=== PATIENT | female | born 1975 | race Caucasian/White ===

== ENCOUNTER 2018-10-08 11:26 | Observation (INO) | payer MEDICARE ==
[2018-10-08] MEDS ORDERED: DUONEB 0.5-3 MG/3 ml Neb IH ONE ×2 (11:49→11:54)
--- NOTE | 2018-10-08 11:55 | ERPHSYRPT ---
- History of Present Illness Time Seen by Provider: 10/08/18 11:40 Source: patient Exam Limitations: no limitations Patient Subjective Stated Complaint: Pt states "I was at my Dr.Dr. Barragan this morning and he said to come here. I have a Hx of DVT and PE and since Saturday I have been short of breath with pain in my chest when I breath and I also have right calf pain." Triage Nursing Assessment: Pt alert and oriented X 3, skin pwd. PT ambulates with an upright steady gait, able to speak in clear full sentences. PT in no apparent respiratory distress. Pt sitting calmly. Physician History: Pt states, she developed shortness of breath 2 days ago, she went to another ER , but did not receive any treatment. She went to see her physician this morning and was sent here. She is c/o pain in her left ribs upon breathing, but denies productive cough, no chest pain, nausea, vomiting, diaphoresis, fever, chills, sore throat or other complaints. She was diagnosed with PE and DVT of the right lower leg 5 years ago, she is currently on coumadin, also takes Clindamycing for infection of her abdominal skin after Lovenox shots. Timing/Duration: day(s) (2) Activities at Onset: none Severity of Dyspnea-Max: moderate Severity of Dyspnea-Current: moderate Possible Cause: occasional episodes Modifying Factors: Improves With: nothing Associated Symptoms: intermittent, cough, chest pain/discomfort, calf pain Allergies/Adverse Reactions: Iodinated Contrast- Oral and IV Dye Allergy (Verified 10/08/18 15:33) shrimp Allergy (Verified 10/08/18 11:36) iv dye theophylline [From Theophyl] Allergy (Verified 10/08/18 11:36) Home Medications: Albuterol Sulfate [Ventolin Hfa] 18 gm IH DAILY 10/08/18 [History] Buspirone HCl [Buspar] 15 mg PO DAILY 10/08/18 [History] Clindamycin HCl 300 mg PO DAILY 10/08/18 [History] Clonazepam [Klonopin] 1 mg PO HS 10/08/18 [History] Cyclobenzaprine HCl 10 mg [Cyclobenzaprine 10 MG] 10 mg PO DAILY 10/08/18 [History] Fluoxetine HCl 20 mg [Prozac 20 MG] 20 mg PO DAILY 10/08/18 [History] Gabapentin [Neurontin] 600 mg PO DAILY 10/08/18 [History] Hydrocodone/Acetaminophen [Hydrocodone-Acetamin 5-325 mg] 1 cap PO DAILY [History] Sucralfate 1 gm [Carafate 1 GM] 1 gm PO DAILY 10/08/18 [History] Trazodone HCl 100 mg PO DAILY 10/08/18 [History] Warfarin Sodium 4 mg PO DAILY 10/08/18 [History] Hx Tetanus, Diphtheria Vaccination/Date Given: Yes Hx Influenza Vaccination/Date Given: Yes Hx Pneumococcal Vaccination/Date Given: No Immunizations Up to Date: Yes - Review of Systems Constitutional: No Symptoms Ears, Nose, & Throat: No Symptoms Respiratory: Dyspnea Cardiac: Other (left rib pain) Abdominal/Gastrointestinal: No Symptoms Genitourinary Symptoms: No Symptoms Musculoskeletal: Other (left calf pain) Skin: No Symptoms Neurological: No Symptoms All Other Systems: Reviewed and Negative - Past Medical History Neurological History: Migraines ENT History: No Pertinent History Cardiac History: Angina, High Cholesterol, Hypertension Respiratory History: Asthma Endocrine Medical History: No Pertinent History Musculoskeletal History: No Pertinent History GI Medical History: Diverticulosis, GERD History: No Pertinent History Psycho-Social History: Anxiety, Depression Female Reproductive Disorders: No Pertinent History - Past Surgical History Past Surgical History: Yes Other Surgical History: hysterectomy. total right knee. appi. suzy. nasal surgery X 2. right ankle. abdomen. lumps off bilat breast - Social History Smoking Status: Never smoker Exposure to second hand smoke: Yes Drug Use: none Patient Lives Alone: No - Female History Hx Last Menstrual Period: compltete hysterectomy Hx Now: No - Nursing Vital Signs Nursing Vital Signs: Initial Vital Signs Temperature 98.4 F 10/08/18 11:27 Pulse Rate 76 10/08/18 11:27 Respiratory Rate 20 10/08/18 11:27 Blood Pressure 132/83 10/08/18 11:27 O2 Sat by Pulse Oximetry 96 10/08/18 11:27 Pain Scale Pain Intensity 4 - Physical Exam General Appearance: no apparent distress Eye Exam: eyes nml inspection Neck Exam: normal inspection, non-tender, supple, No JVD Respiratory Exam: rhonchi, wheezing, other (left lateral and posterior chest ) Cardiovascular/Chest Exam: normal heart sounds, regular rate/rhythm, normal peripheral pulses, No murmur, No edema, No JVD Abdominal/Gastrointestinal Exam: soft, normal bowel sounds, ecchymosis, other ( multiple Lovenox shots, ecchymotic areas), No tenderness, No distention, No mass , No guarding, No rebound Peripheral Pulses Exam: dorsalis-pedis (R): 3+, dorsalis-pedis (L): 3+ Neurologic Exam: alert, oriented x 3, cooperative, normal mood/affect Skin Exam: normal color, warm, dry, No rash, No petechiae Lymphatic Exam: No adenopathy SpO2 Interpretation: normal SpO2: 98 O2 Delivery: Room Air - Course Nursing assessment & vital signs reviewed: Yes EKG Interpreted by Me: RATE (74), Sinus Rhythm, NORMAL AXIS, NORMAL INTERVALS, NORMAL QRS, NORMAL ST-T - Radiology Exams Chest X-ray Interpretation: Reviewed by me, Negative Ordered Tests: Active Orders 24 hr Category Date Time Status Granite Polisher STAT Care 10/08/18 11:48 Active EKG-ER Only STAT Care 10/08/18 11:48 Active IV Insertion STAT Care 10/08/18 11:48 Active Pulse Oximetry (ED) STAT Care 10/08/18 11:48 Active CHEST 2 VIEWS (PA AND LAT) Stat Exams 10/08/18 11:47 Completed VENOUS UNILAT/LIMITED EXTREMIT [US] Stat Exams 10/08/18 14:25 Completed CBC W DIFF Stat Lab 10/08/18 11:50 Completed CK-Creatinine Phosphokinase Stat Lab 10/08/18 11:50 Completed CMP Stat Lab 10/08/18 11:50 Completed D-DIMER QUANTITATION Stat Lab 10/08/18 11:00 Completed NT PRO BNP Stat Lab 10/08/18 11:50 Completed PROTIME WITH INR Stat Lab 10/08/18 11:50 Completed PTT Stat Lab 10/08/18 11:50 Completed TROPONIN Q3H Lab 10/08/18 11:50 Completed TROPONIN Q3H Lab 10/08/18 14:55 Completed TROPONIN Q3H Lab 10/08/18 18:00 Ordered TROPONIN Q3H Lab 10/08/18 21:00 Ordered TROPONIN Q3H Lab 10/09/18 00:00 Ordered Peak Expiratory Flow Rate ONCE RT 10/08/18 12:19 Active Respiratory Nebulizer STAT RT 10/08/18 11:49 Completed Respiratory Therapy Assessment DAILY RT 10/08/18 12:19 Active Medication Summary Discontinued Medications Generic Name Dose Route Start Last Admin Trade Name Sidney PRN Reason Stop Dose Admin Albuterol/Ipratropium 3 ml 10/08/18 11:49 10/08/18 12:12 Duoneb 0.5-3 Mg/3 Ml Neb IH 10/08/18 11:50 3 ml STAT ONE Administration Albuterol/Ipratropium Confirm 10/08/18 11:54 Duoneb 0.5-3 Mg/3 Ml Neb Administered 10/08/18 11:55 Dose 3 ml IH .STK-MED ONE Enoxaparin Sodium 90 mg 10/08/18 15:38 10/08/18 15:42 Enoxaparin Sodium SQ 10/08/18 15:39 90 mg STAT ONE Administration Enoxaparin Sodium Confirm 10/08/18 15:41 Enoxaparin Sodium Administered 10/08/18 15:42 Dose 120 mg SQ .STK-MED ONE Lab/Rad Data: Laboratory Result Diagrams 10/08/18 11:50 10/08/18 11:50 Laboratory Results 10/08/18 10/08/18 10/08/18 Range/Units 14:55 11:50 11:50 WBC (4.0-10.5) K/mm3 RBC (4.1-5.4) M/mm3 Hgb (12.0-16.0) gm/dl Hct (35-47) % MCV (78-100) fl MCH (26-32) pg MCHC (32-36) g/dl RDW (11.5-14.0) % Plt Count (150-450) K/mm3 MPV (6-9.5) fl Gran % (36.0-66.0) % Eos # (Auto) (0-0.5) Absolute Lymphs (auto) (1.0-4.6) Absolute Monos (auto) (0.0-1.3) Lymphocytes % (24.0-44.0) % Monocytes % (0.0-12.0) % Eosinophils % (0.00-5.0) % Basophils % (0.0-0.4) % Absolute Granulocytes (1.4-6.9) Basophils # (0-0.4) PT 12.4 H (9.95-12.35) SECONDS INR 1.07 (0.8-3.0) APTT 28.3 (25.3-37.0) SECONDS D-Dimer (215-500) ng/mL Sodium (137-145) mmol/L Potassium (3.5-5.1) mmol/L Chloride (98-107) mmol/L Carbon Dioxide (22-30) mmol/L Anion Gap (5-15) MEQ/L BUN (7-17) mg/dL Creatinine (0.52-1.04) mg/dL Estimated GFR ML/MIN Glucose (74-106) mg/dL Calcium (8.4-10.2) mg/dL Total Bilirubin (0.2-1.3) mg/dL AST (14-36) U/L ALT (0-35) U/L Alkaline Phosphatase (38-126) U/L Creatine Kinase (30-135) U/L Troponin I < 0.012 < 0.012 (0.000-0.034) ng/mL NT-Pro-B Natriuret Pep (0-450) pg/mL Serum Total Protein (6.3-8.2) g/dL Albumin (3.5-5.0) g/dL 10/08/18 10/08/18 10/08/18 Range/Units 11:50 11:50 11:00 WBC 6.8 (4.0-10.5) K/mm3 RBC 4.40 (4.1-5.4) M/mm3 Hgb 13.7 (12.0-16.0) gm/dl Hct 42.1 (35-47) % MCV 95.7 (78-100) fl MCH 31.1 (26-32) pg MCHC 32.5 (32-36) g/dl RDW 13.1 (11.5-14.0) % Plt Count 350 (150-450) K/mm3 MPV 9.9 H (6-9.5) fl Gran % 57.0 (36.0-66.0) % Eos # (Auto) 0.29 (0-0.5) Absolute Lymphs (auto) 2.15 (1.0-4.6) Absolute Monos (auto) 0.40 (0.0-1.3) Lymphocytes % 31.8 (24.0-44.0) % Monocytes % 5.9 (0.0-12.0) % Eosinophils % 4.3 (0.00-5.0) % Basophils % 1.0 (0.0-0.4) % Absolute Granulocytes 3.85 (1.4-6.9) Basophils # 0.07 (0-0.4) PT (9.95-12.35) SECONDS INR (0.8-3.0) APTT (25.3-37.0) SECONDS D-Dimer 375 (215-500) ng/mL Sodium 142 (137-145) mmol/L Potassium 3.9 (3.5-5.1) mmol/L Chloride 105 (98-107) mmol/L Carbon Dioxide 27 (22-30) mmol/L Anion Gap 13.7 (5-15) MEQ/L BUN 10 (7-17) mg/dL Creatinine 0.84 (0.52-1.04) mg/dL Estimated GFR > 60.0 ML/MIN Glucose 105 (74-106) mg/dL Calcium 10.2 (8.4-10.2) mg/dL Total Bilirubin 0.50 (0.2-1.3) mg/dL AST 21 (14-36) U/L ALT 37 H (0-35) U/L Alkaline Phosphatase 131 H (38-126) U/L Creatine Kinase 130 (30-135) U/L Troponin I (0.000-0.034) ng/mL NT-Pro-B Natriuret Pep 35.0 (0-450) pg/mL Serum Total Protein 7.5 (6.3-8.2) g/dL Albumin 4.4 (3.5-5.0) g/dL - Progress Progress: unchanged Air Movement: good Progress Note: 10/08/18 16:19 Pt's tesults all reviewed, d-dimer and right venous doppler were negative, troponin negative, planned to perform CT chest, she is allergic to iv dye, ( anaphilactic), called Dr Ryan, discussed this case in details,he agreed to admit her for observation, Lovenox was started ( her INR:1.07), patient was informed and agreed. Blood Culture(s) Obtained: No Antibiotics given: No Discussed with : Other (Connor) Will see patient in: hospital (observation) Counseled pt/family regarding: lab results, diagnosis, rad results - Departure Time of Disposition: 16:22 Departure Disposition: Observation Clinical Impression: Chest pain Qualifiers: Chest pain type: chest pain on breathing Qualified Code(s): R07.1 - Chest pain on breathing; R07.81 - Pleurodynia Condition: Stable Critical Care Time: No Referrals: JUVENTINO FERNANDEZ MD [Primary Care Provider] -
[2018-10-08 12:05] LABS: Basophil (Absolute #) 0.07 (0-0.4); Eosinophil % 4.3 % (0.00-5.0); Eosinophil (Absolute #) 0.29 (0-0.5); Granulocyte Absolute (ANC) 3.85 (1.4-6.9); Hematocrit 42.1 % (35-47); Hemoglobin 13.7 gm/dl (12.0-16.0); Lymphocyte (Absolute #) 2.15 (1.0-4.6); Lymphocytes % 31.8 % (24.0-44.0); Mean Cell Volume 95.7 fl (78-100); Mean Corpuscular Hemoglobin 31.1 pg (26-32); Mean Corpuscular Hgb Concent. 32.5 g/dl (32-36); Mean Platelet Volume 9.9 fl (6-9.5); Monocytes % 5.9 % (0.0-12.0); Platelet Count 350 K/mm3 (150-450); Red Cell Distribution Width 13.1 % (11.5-14.0); White Blood Count 6.8 K/mm3 (4.0-10.5)
--- NOTE | 2018-10-08 12:05 | XRAY ---
Indication: Left chest pain. Comparison: None PA/lateral chest demonstrates normal heart and lungs. Bony thorax intact with mild degenerative changes. Incidental epigastric mesh graft.
[2018-10-08 12:11] LABS: INR 1.07 (0.8-3.0); PROTIME 12.4 SECONDS (9.95-12.35)
[2018-10-08 12:14] LABS: PTT 28.3 SECONDS (25.3-37.0)
[2018-10-08 12:33] LABS: ALBUMIN 4.4 g/dL (3.5-5.0); ALKALINE PHOSPHATASE 131 U/L (38-126); ANION GAP 13.7 MEQ/L (5-15); BLOOD UREA NITROGEN 10 mg/dL (7-17); CHLORIDE 105 mmol/L (98-107); CK-Creatinine Phosphokinase 130 U/L (30-135); Calcium 10.2 mg/dL (8.4-10.2); Carbon Dioxide 27 mmol/L (22-30); Creatinine 1 0.84 mg/dL (0.52-1.04); Glucose 105 mg/dL (74-106); Potassium 3.9 mmol/L (3.5-5.1); SGOT/AST 21 U/L (14-36); SGPT/ALT 37 U/L (0-35); SODIUM 142 mmol/L (137-145); Total Protein 7.5 g/dL (6.3-8.2)
--- NOTE | 2018-10-08 14:36 | XRAY ---
Indication: Right leg pain. Two-dimensional sonogram and color Doppler imaging of the major venous vessels of the right leg was performed. Comparison: None No thrombus seen in the examined deep venous vessels of the right leg including greater saphenous vein. Veins demonstrate normal compressibility. Venous waveforms are normal with and without augmentation. Impression: Right leg negative for DVT.
[2018-10-08] MEDS ORDERED: ENOXAPARIN SODIUM SQ ONE ×3 (15:38→23:09)
[2018-10-08] MEDS ORDERED: solu-MEDROL 125 MG IV ONE (17:52)
[2018-10-08] MEDS ORDERED: Coumadin 5 MG PO ONE (17:55)
[2018-10-08] MEDS ORDERED: Coumadin 3 MG PO ONE (17:57)
[2018-10-08] MEDS: TORAdol 30 mg Injection IV PRN (18:46)
[2018-10-08] MEDS ORDERED: DUONEB 0.5-3 MG/3 ml Neb IH SCH (19:00)
[2018-10-08] MEDS ORDERED: Klonopin 0.5 MG PO SCH (19:00)
[2018-10-08] MEDS: PROVENTIL 2.5 MG/3 ML NEB IH SCH ×2 (19:25→22:55)
[2018-10-08] MEDS: Advair Hfa 115/21 Common canister IH SCH (19:29)
[2018-10-08] MEDS ORDERED: ENOXAPARIN SODIUM SQ SCH (22:00)
[2018-10-08] MEDS: BENADRYL 25 MG CAPSULE PO PRN (23:12)
[2018-10-08] MEDS: Protonix 40MG Tablet PO SCH (23:12)
[2018-10-08] MEDS: Singulair 10 MG PO SCH (23:13)
[2018-10-08] MEDS: Ambien 5 MG Tablet PO SCH (23:13)
[2018-10-08] MEDS: BACTRIM DS TABLET PO SCH (23:13)
[2018-10-09] MEDS ORDERED: NEURONTIN 300 MG ONE (00:08)
[2018-10-09] MEDS: TORAdol 30 mg Injection IV PRN ×3 (00:09→17:03)
[2018-10-09] MEDS: PROVENTIL 2.5 MG/3 ML NEB IH SCH ×6 (02:59→23:02)
[2018-10-09] MEDS ORDERED: PROVENTIL 2.5 MG/3 ML NEB IH ONE (06:44)
[2018-10-09] MEDS: Advair Hfa 115/21 Common canister IH SCH ×2 (06:54→19:42)
[2018-10-09] MEDS ORDERED: ENOXAPARIN SODIUM SQ SCH (07:00)
[2018-10-09] MEDS ORDERED: NORCO 5/325 MG PO PRN (07:11)
[2018-10-09] MEDS ORDERED: NON-FORMULARY ITEM (Clonazepam [Klonopin] 1 MG) PO PRN (07:11)
[2018-10-09] MEDS ORDERED: Klonopin 0.5 MG PO PRN (07:16)
[2018-10-09] MEDS: Carafate 1 GM PO SCH (07:35)
[2018-10-09] MEDS: Klonopin 0.5 MG PO PRN ×2 (08:20→17:24)
[2018-10-09] MEDS: Zestril 10 MG PO SCH (09:15)
[2018-10-09] MEDS: Prozac 20 MG PO SCH (09:15)
[2018-10-09] MEDS: BACTRIM DS TABLET PO SCH (09:15)
[2018-10-09] MEDS: NEURONTIN 300 MG PO SCH ×2 (09:16→21:13)
[2018-10-09 09:36] LABS: INR 1.37 (0.8-3.0)
[2018-10-09 09:42] LABS: BASOPHIL % 0.1 % (0.0-0.4); Basophil (Absolute #) 0.01 (0-0.4); Eosinophil (Absolute #) 0 (0-0.5); Granulocytes % 86.4 % (36.0-66.0); Hematocrit 42.8 % (35-47); Hemoglobin 13.7 gm/dl (12.0-16.0); Lymphocyte (Absolute #) 0.89 (1.0-4.6); Lymphocytes % 9.4 % (24.0-44.0); Mean Cell Volume 95.1 fl (78-100); Mean Corpuscular Hemoglobin 30.4 pg (26-32); Mean Platelet Volume 10.3 fl (6-9.5); Monocyte (Absolute #) 0.39 (0.0-1.3); Monocytes % 4.1 % (0.0-12.0); Platelet Count 380 K/mm3 (150-450); White Blood Count 9.5 K/mm3 (4.0-10.5)
--- NOTE | 2018-10-09 09:57 | PCM.HP ---
History of Present Illness - Chief Complaint Chief Complaint: Shortness of Breath History of Present Illness: is a 43 year old female with h/o Asthma, chronic lower back pain, and PE first diagnosed in 2013. Subsequently, she had more intermittent episodes of DVT's, so has been on coumadin since then. Pt sees Dr montrell Palencia. She has been tapering off coumadin for a procedure and bridge back with lovenox, but her coumadin didn't mixing picker tender. She starts to have more SOB in the past week and tenderness in her right LE, so she came to ED for evaluation. She initially went to a different ED, but came here for treatment instead. Pt develops contrast allergy after her first diagnosis of PE. She has chest tightness/ pressure, and sob along with right calf pain. She denies any recent f/c, vision changes, n/v/d, abd pain, or bleeding. She has cellulitis in her abdomen due to recent frequent SubQ Lovenox shots. - Review of Systems Constitutional: Fatigue, No Fever, No Chills Eyes: No Symptoms Ears, Nose, & Throat: No Symptoms Respiratory: Short Of Breath, Wheezing Cardiac: Chest Pain, No Edema, No Palpitations, No Syncope Abdominal/Gastrointestinal: Nausea, No Abdominal Pain, No Vomiting, No Diarrhea Genitourinary Symptoms: No Symptoms Musculoskeletal: Myalgias, Other Skin: Cellulitis, No Rash Neurological: No Symptoms Psychological: No Symptoms Endocrine: No Symptoms Hematologic/Lymphatic: No Symptoms Immunological/Allergic: No Symptoms Medications & Allergies Home Medications: Home Medication List Albuterol Sulfate [Ventolin Hfa] 18 gm IH QIDPRN PRN 10/08/18 [History Confirmed 10/08/18] Clindamycin HCl 300 mg PO QID 10/08/18 [History Confirmed 10/08/18] Clonazepam [Klonopin] 1 mg PO HSPRN PRN 10/08/18 [History Confirmed 10/08/18] Cyclobenzaprine HCl 10 mg [Cyclobenzaprine 10 MG] 10 mg PO HS 10/08/18 [ History Confirmed 10/08/18] Fluoxetine HCl 20 mg [Prozac 20 MG] 20 mg PO DAILY 10/08/18 [History Confirmed 10/08/18] Gabapentin [Neurontin] 600 mg PO BID 10/08/18 [History Confirmed 10/08/18] Hydrocodone/Acetaminophen [Hydrocodone-Acetamin 5-325 mg] 1 cap PO DAILY PRN PRN 10/08/18 [History Confirmed 10/08/18] Lisinopril 10 mg [Zestril 10 MG] 10 mg PO DAILY 10/08/18 [History Confirmed 10/08/18] Sucralfate 1 gm [Carafate 1 GM] 1 gm PO DAILY 10/08/18 [History Confirmed 10/08/18] Warfarin Sodium 4 mg PO DAILY 10/08/18 [History Confirmed 10/08/18] clonazePAM [Klonopin] 0.5 tab PO QIDPRN PRN 10/08/18 [History Confirmed 10/08/18 ] Allergies/Adverse Reactions: Allergies Allergy/AdvReac Type Severity Reaction Status Date / Time Iodinated Contrast- Oral and Allergy Verified 10/08/18 15:33 IV Dye shrimp Allergy Verified 10/08/18 11:36 theophylline [From Theophyl] Allergy Verified 10/08/18 11:36 - Past Medical History Past Medical History: Yes Neurological History: Migraines ENT History: No Pertinent History Cardiac History: Angina, High Cholesterol, Hypertension Respiratory History: Asthma, Pulmonary Embolism Endocrine Medical History: No Pertinent History Musculoskelatal History: No Pertinent History GI Medical History: Diverticulosis, GERD History: No Pertinent History Pyscho-Social History: Anxiety, Depression Reproductive Disorders: No Pertinent History - Female History Hx Last Menstrual Period: compltete hysterectomy Are you now?: No - Past Surgical History Past Surgical History: Yes Neuro Surgical History: No Pertinent History Cardiac History: No Pertinent History Respiratory Surgery: No Pertinent History GI Surgical History: Appendectomy, Bowel Surgery, Other Genitourinary Surgical Hx: No Pertinent History Musculskeletal Surgical Hx: Orthopedic Surgery Female Surgical History: Hysterectomy Other Surgical History: hysterectomy. total right knee. appi. suzy. nasal surgery X 2. right ankle. abdomen. lumps off bilat breast. stomach surgery X2 - Social History Smoking Status: Never smoker Exposure to second hand smoke: No Alcohol: None Drug Use: none - Physical Exam Vital Signs: Vital Signs - 24 hr Temp Pulse Resp BP Pulse Ox 10/09/18 08:19 113 H 14 128/66 95 10/09/18 08:00 97.7 F 115 H 22 126/70 95 10/09/18 07:25 105 H 18 95 10/09/18 03:59 98.3 F 112 H 16 126/73 94 L 10/09/18 02:59 105 H 20 91 L 10/08/18 23:44 98.2 F 99 H 21 121/75 97 10/08/18 22:55 99 H 21 97 10/08/18 19:58 98.2 F 83 18 133/72 96 10/08/18 19:25 82 20 97 10/08/18 19:19 102 H 20 97 10/08/18 17:14 98 F 77 20 131/90 93 L 10/08/18 16:52 98 F 77 20 131/90 93 L 10/08/18 16:22 98 10/08/18 16:13 98.4 F 80 18 128/34 99 10/08/18 14:54 79 18 133/87 96 10/08/18 14:00 73 14 140/84 100 10/08/18 12:51 98.7 F 75 16 138/88 98 10/08/18 12:20 80 16 94 L 10/08/18 11:27 98.4 F 76 18 132/83 98 Oxygen-Last 24 hours O2 Percentage 4 Liters = 36% O2 Percentage 3 Liters = 32% Additional Findings: 10/09/18 09:54 General appearance: alert, cooperative, in mild distress Head: Normocephalic, without trauma Eyes: sclera and conjunctiva clear, EOMI and PERRLA, lids normal Ears: canals clear, hearing intact to voice Nose: nares open; Throat: no mucous membrane abnormalities Neck: range of motion is intact, no masses, Back: no deformity or tenderness Chest: no tenderness, Lungs: decreased breath sounds in b/l lower segments; mild - moderate expiratory wheezes; no rales/crackles Heart: regular rhythm, normal S1 and S2, without murmurs, gallops or rubs Abdomen: soft without mass, non-tender without guarding, multiple cellulitis erythematous patches; BS presents Extremities: no clubbing, cyanosis or edema; tenderness in right calf, but no swelling or erythema Circulation: Carotid and pedal pulses are intact and symmetrical, no carotid bruits Joints: ranges of motion normal without inflammation, effusion or deformity Skin: warm and dry; no rashes or other abnormalities are noted Neurologic: mental status normal; alert and oriented X 3; cranial nerves II - XII are grossly intact Psychological: cooperative; normal behavior and affect Results - Labs Lab/Micro Results: Lab Results-Last 24 Hours 10/08/18 10/08/18 10/08/18 Range/Units 11:00 11:50 11:50 WBC 6.8 (4.0-10.5) K/mm3 RBC 4.40 (4.1-5.4) M/mm3 Hgb 13.7 (12.0-16.0) gm/dl Hct 42.1 (35-47) % MCV 95.7 (78-100) fl MCH 31.1 (26-32) pg MCHC 32.5 (32-36) g/dl RDW 13.1 (11.5-14.0) % Plt Count 350 (150-450) K/mm3 MPV 9.9 H (6-9.5) fl Gran % 57.0 (36.0-66.0) % Eos # (Auto) 0.29 (0-0.5) Absolute Lymphs (auto) 2.15 (1.0-4.6) Absolute Monos (auto) 0.40 (0.0-1.3) Lymphocytes % 31.8 (24.0-44.0) % Monocytes % 5.9 (0.0-12.0) % Eosinophils % 4.3 (0.00-5.0) % Basophils % 1.0 (0.0-0.4) % Absolute Granulocytes 3.85 (1.4-6.9) Basophils # 0.07 (0-0.4) PT (9.95-12.35) SECONDS INR (0.8-3.0) APTT (25.3-37.0) SECONDS D-Dimer 375 (215-500) ng/mL Sodium 142 (137-145) mmol/L Potassium 3.9 (3.5-5.1) mmol/L Chloride 105 (98-107) mmol/L Carbon Dioxide 27 (22-30) mmol/L Anion Gap 13.7 (5-15) MEQ/L BUN 10 (7-17) mg/dL Creatinine 0.84 (0.52-1.04) mg/dL Estimated GFR > 60.0 ML/MIN Glucose 105 (74-106) mg/dL Calcium 10.2 (8.4-10.2) mg/dL Total Bilirubin 0.50 (0.2-1.3) mg/dL AST 21 (14-36) U/L ALT 37 H (0-35) U/L Alkaline Phosphatase 131 H (38-126) U/L Creatine Kinase 130 (30-135) U/L Troponin I (0.000-0.034) ng/mL NT-Pro-B Natriuret Pep 35.0 (0-450) pg/mL Serum Total Protein 7.5 (6.3-8.2) g/dL Albumin 4.4 (3.5-5.0) g/dL 10/08/18 10/08/18 10/08/18 Range/Units 11:50 11:50 14:55 WBC (4.0-10.5) K/mm3 RBC (4.1-5.4) M/mm3 Hgb (12.0-16.0) gm/dl Hct (35-47) % MCV (78-100) fl MCH (26-32) pg MCHC (32-36) g/dl RDW (11.5-14.0) % Plt Count (150-450) K/mm3 MPV (6-9.5) fl Gran % (36.0-66.0) % Eos # (Auto) (0-0.5) Absolute Lymphs (auto) (1.0-4.6) Absolute Monos (auto) (0.0-1.3) Lymphocytes % (24.0-44.0) % Monocytes % (0.0-12.0) % Eosinophils % (0.00-5.0) % Basophils % (0.0-0.4) % Absolute Granulocytes (1.4-6.9) Basophils # (0-0.4) PT 12.4 H (9.95-12.35) SECONDS INR 1.07 (0.8-3.0) APTT 28.3 (25.3-37.0) SECONDS D-Dimer (215-500) ng/mL Sodium (137-145) mmol/L Potassium (3.5-5.1) mmol/L Chloride (98-107) mmol/L Carbon Dioxide (22-30) mmol/L Anion Gap (5-15) MEQ/L BUN (7-17) mg/dL Creatinine (0.52-1.04) mg/dL Estimated GFR ML/MIN Glucose (74-106) mg/dL Calcium (8.4-10.2) mg/dL Total Bilirubin (0.2-1.3) mg/dL AST (14-36) U/L ALT (0-35) U/L Alkaline Phosphatase (38-126) U/L Creatine Kinase (30-135) U/L Troponin I < 0.012 < 0.012 (0.000-0.034) ng/mL NT-Pro-B Natriuret Pep (0-450) pg/mL Serum Total Protein (6.3-8.2) g/dL Albumin (3.5-5.0) g/dL 10/08/18 10/08/18 10/09/18 Range/Units 18:00 21:10 00:20 WBC (4.0-10.5) K/mm3 RBC (4.1-5.4) M/mm3 Hgb (12.0-16.0) gm/dl Hct (35-47) % MCV (78-100) fl MCH (26-32) pg MCHC (32-36) g/dl RDW (11.5-14.0) % Plt Count (150-450) K/mm3 MPV (6-9.5) fl Gran % (36.0-66.0) % Eos # (Auto) (0-0.5) Absolute Lymphs (auto) (1.0-4.6) Absolute Monos (auto) (0.0-1.3) Lymphocytes % (24.0-44.0) % Monocytes % (0.0-12.0) % Eosinophils % (0.00-5.0) % Basophils % (0.0-0.4) % Absolute Granulocytes (1.4-6.9) Basophils # (0-0.4) PT (9.95-12.35) SECONDS INR (0.8-3.0) APTT (25.3-37.0) SECONDS D-Dimer (215-500) ng/mL Sodium (137-145) mmol/L Potassium (3.5-5.1) mmol/L Chloride (98-107) mmol/L Carbon Dioxide (22-30) mmol/L Anion Gap (5-15) MEQ/L BUN (7-17) mg/dL Creatinine (0.52-1.04) mg/dL Estimated GFR ML/MIN Glucose (74-106) mg/dL Calcium (8.4-10.2) mg/dL Total Bilirubin (0.2-1.3) mg/dL AST (14-36) U/L ALT (0-35) U/L Alkaline Phosphatase (38-126) U/L Creatine Kinase (30-135) U/L Troponin I < 0.012 < 0.012 < 0.012 (0.000-0.034) ng/mL NT-Pro-B Natriuret Pep (0-450) pg/mL Serum Total Protein (6.3-8.2) g/dL Albumin (3.5-5.0) g/dL 10/09/18 10/09/18 10/09/18 Range/Units 08:27 08:45 08:45 WBC 9.5 (4.0-10.5) K/mm3 RBC 4.50 (4.1-5.4) M/mm3 Hgb 13.7 (12.0-16.0) gm/dl Hct 42.8 (35-47) % MCV 95.1 (78-100) fl MCH 30.4 (26-32) pg MCHC 32.0 (32-36) g/dl RDW 13.0 (11.5-14.0) % Plt Count 380 (150-450) K/mm3 MPV 10.3 H (6-9.5) fl Gran % 86.4 H (36.0-66.0) % Eos # (Auto) 0 (0-0.5) Absolute Lymphs (auto) 0.89 L (1.0-4.6) Absolute Monos (auto) 0.39 (0.0-1.3) Lymphocytes % 9.4 L (24.0-44.0) % Monocytes % 4.1 (0.0-12.0) % Eosinophils % 0.0 (0.00-5.0) % Basophils % 0.1 (0.0-0.4) % Absolute Granulocytes 8.20 H (1.4-6.9) Basophils # 0.01 (0-0.4) PT 16.0 H (9.95-12.35) SECONDS INR 1.37 D (0.8-3.0) APTT (25.3-37.0) SECONDS D-Dimer (215-500) ng/mL Sodium (137-145) mmol/L Potassium (3.5-5.1) mmol/L Chloride (98-107) mmol/L Carbon Dioxide (22-30) mmol/L Anion Gap (5-15) MEQ/L BUN (7-17) mg/dL Creatinine (0.52-1.04) mg/dL Estimated GFR ML/MIN Glucose (74-106) mg/dL Calcium (8.4-10.2) mg/dL Total Bilirubin (0.2-1.3) mg/dL AST (14-36) U/L ALT (0-35) U/L Alkaline Phosphatase (38-126) U/L Creatine Kinase (30-135) U/L Troponin I < 0.012 (0.000-0.034) ng/mL NT-Pro-B Natriuret Pep (0-450) pg/mL Serum Total Protein (6.3-8.2) g/dL Albumin (3.5-5.0) g/dL - Radiology Impressions Radiology Exams & Impressions: Radiology Procedures Category Date Time Status CHEST 2 VIEWS (PA AND LAT) Stat Exams 10/08/18 11:47 Completed PULMONARY PERF VENTILATION [NUCMED] Routine Exams 10/09/18 08:00 Ordered VENOUS UNILAT/LIMITED EXTREMIT [US] Stat Exams 10/08/18 14:25 Completed - Other Procedures and Tests Respiratory Therapy 10/08/18 12:19 Peak Expiratory Flow Rate ONCE Respiratory Therapy Assessment DAILY 10/08/18 19:16 Oxygen Nasal Cannula 3 lpm Assessment/Plan (1) Pulmonary embolism Current Visit: Yes Status: Acute Assessment & Plan: started full anticogulation with SQ Lovenox bridge with coumadin cont O2, prn pain meds discharge planning with lovenox bridge check INR and dose coumadin Code(s): I26.99 - OTHER PULMONARY EMBOLISM WITHOUT ACUTE COR PULMONALE (2) Asthma Current Visit: Yes Status: Acute Assessment & Plan: in mild exacerbation due to PE steroid scheduled nebulizers until stable resume home meds Code(s): J45.909 - UNSPECIFIED ASTHMA, UNCOMPLICATED (3) Cellulitis Current Visit: Yes Status: Acute Assessment & Plan: due to recent SubQ injections was on clindamycin switched to PO DS Bactrim BID x 10 days Code(s): L03.90 - CELLULITIS, UNSPECIFIED
[2018-10-09] MEDS ORDERED: NON-FORMULARY ITEM (Gabapentin [Neurontin] 600 MG) PO SCH (10:00)
[2018-10-09] MEDS ORDERED: Ativan 1 MG PO PRN (11:17)
[2018-10-09 11:25] LABS: ANION GAP 16.9 MEQ/L (5-15); BLOOD UREA NITROGEN 12 mg/dL (7-17); CHLORIDE 108 mmol/L (98-107); Calcium 10.2 mg/dL (8.4-10.2); Carbon Dioxide 22 mmol/L (22-30); Creatinine 1 0.81 mg/dL (0.52-1.04); Glucose 152 mg/dL (74-106); Potassium 4.5 mmol/L (3.5-5.1); SODIUM 142 mmol/L (137-145)
[2018-10-09] MEDS: solu-MEDROL 125 MG IV SCH ×2 (12:10→17:01)
[2018-10-09] MEDS: MORPHINE SULFATE 4 MG INJ IV PRN ×3 (12:16→23:41)
--- NOTE | 2018-10-09 12:29 | XRAY ---
Indication: Left-sided chest pain, short of breath, and low blood oxygen level. Negative chest radiograph and right leg venous ultrasound exam one day earlier. History bilateral PE. Patient received 5.4 mCi technetium 99 MAA for the perfusion portion of the exam. Patient inhaled 36.3 mCi aerosolized technetium 99 DTPA. Multiple planar images obtained. Comparison: None Perfusion images demonstrates homogeneous radiopharmaceutical activity. Specifically no segmental/subsegmental perfusion defects. Ventilation images also demonstrates homogeneous radiopharmaceutical activity in both lungs. Moderate central radiopharmaceutical activity favors chronic obstructive disease. Impression: 1. Negative for PE. 2. Incidental chronic obstructive disease.
[2018-10-09] MEDS: ENOXAPARIN SODIUM SQ SCH (17:01)
[2018-10-09] MEDS ORDERED: Ativan 2 MG/1 ML VIAL IV PRN (17:47)
[2018-10-09] MEDS ORDERED: Coumadin 2 MG PO ONE (18:00)
[2018-10-09] MEDS ORDERED: Coumadin 3 MG PO ONE (18:00)
[2018-10-09] MEDS ORDERED: Seroquel 100 MG PO PRN (18:05)
[2018-10-09] MEDS ORDERED: HALDOL 1 MG PO PRN (18:09)
[2018-10-09] MEDS: BENADRYL 25 MG CAPSULE PO PRN (21:13)
[2018-10-09] MEDS: Ambien 5 MG Tablet PO SCH (21:14)
[2018-10-09] MEDS: Protonix 40MG Tablet PO SCH (21:14)
[2018-10-09] MEDS: Cyclobenzaprine 10 MG PO SCH ×2 (21:14→22:30)
[2018-10-09] MEDS: Singulair 10 MG PO SCH (21:14)
[2018-10-09] MEDS: Zosyn 3.375GM/100 Ml D5W 3.375 GM/100 ML IVPB IV SCH (21:45)
[2018-10-09] MEDS ORDERED: Seroquel 100 MG PO SCH (22:00)
[2018-10-09] MEDS ORDERED: NEURONTIN 300 MG PO ONE (23:58)
[2018-10-10] MEDS: solu-MEDROL 125 MG IV SCH ×3 (00:26→11:40)
[2018-10-10] MEDS: Zosyn 3.375GM/100 Ml D5W 3.375 GM/100 ML IVPB IV SCH ×3 (01:18→11:40)
[2018-10-10] MEDS: PROVENTIL 2.5 MG/3 ML NEB IH SCH ×3 (03:15→10:51)
[2018-10-10 04:48] LABS: Lactic Acid 3.5 (0.4-2.0)
[2018-10-10 04:50] LABS: A-aADO2 154; ABG HEMOGLOBIN 12.6; ABG POTASSIUM 4.3 (3.5-5.1); ABG SITE LEFT BRACHIAL; ARTERIAL BLD GAS O2 SATURATION 99.2 % (95-100); ARTERIAL BLOOD GAS BASE EXCESS -1.6 (-2.0-2.0); ARTERIAL BLOOD GAS FIO2 44 %; ARTERIAL BLOOD GAS PCO2 30 mmHg (35-45); ARTERIAL BLOOD GAS PO2 122 mmHg (75-100); ARTERIAL BLOOD GAS pH 7.46 (7.35-7.45); CARBOXYHEMOGLOBIN 2.7 % THgb (0.0-6.9); HCO3- 21.3 (22-28); HGB O2 SAT 95.2 g/dF (94-100); Methhemoglobin 1.3 % (1.4-1.5); paO2 pAO1 0.44
[2018-10-10 04:56] LABS: BASOPHIL % 0.1 % (0.0-0.4); Basophil (Absolute #) 0.01 (0-0.4); Eosinophil % 0.1 % (0.00-5.0); Eosinophil (Absolute #) 0.01 (0-0.5); Granulocyte Absolute (ANC) 16.01 (1.4-6.9); Granulocytes % 93.7 % (36.0-66.0); Hematocrit 38.7 % (35-47); Hemoglobin 12.2 gm/dl (12.0-16.0); Lymphocyte (Absolute #) 0.81 (1.0-4.6); Lymphocytes % 4.7 % (24.0-44.0); Mean Cell Volume 97.7 fl (78-100); Mean Corpuscular Hemoglobin 30.8 pg (26-32); Mean Corpuscular Hgb Concent. 31.5 g/dl (32-36); Mean Platelet Volume 10.3 fl (6-9.5); Monocyte (Absolute #) 0.24 (0.0-1.3); Monocytes % 1.4 % (0.0-12.0); Platelet Count 345 K/mm3 (150-450); Red Blood Count 3.96 M/mm3 (4.1-5.4); Red Cell Distribution Width 13.5 % (11.5-14.0); White Blood Count 17.1 K/mm3 (4.0-10.5)
[2018-10-10] MEDS ORDERED: Sodium Chloride 0.9% 1000 ML 1,000 ML IV STA (05:58)
[2018-10-10 06:17] LABS: INR 2.37 (0.8-3.0); PROTIME 27.8 SECONDS (9.95-12.35)
[2018-10-10 06:21] LABS: ANION GAP 15.5 MEQ/L (5-15); Calcium 9.5 mg/dL (8.4-10.2); Creatinine 1 1.5 mg/dL (0.52-1.04); Potassium 4.8 mmol/L (3.5-5.1)
[2018-10-10] MEDS ORDERED: Zosyn 3.375GM/100 Ml D5W 3.375 GM/100 ML IVPB IV ONE (06:28)
[2018-10-10] MEDS: Advair Hfa 115/21 Common canister IH SCH (06:39)
[2018-10-10] MEDS: ENOXAPARIN SODIUM SQ SCH (07:38)
[2018-10-10] MEDS: Carafate 1 GM PO SCH (07:39)
[2018-10-10] MEDS: Klonopin 0.5 MG PO PRN (08:39)
--- NOTE | 2018-10-10 08:43 | XRAY ---
Indication: Low oxygen levels. Comparison: October 08, 2018. Portable AP/lateral chest demonstrates new bibasilar infiltrates/atelectasis, right greater than left. Remaining heart and lungs unremarkable.
[2018-10-10] MEDS ORDERED: Ativan 2 MG/1 ML VIAL IV PRN (09:15)
[2018-10-10] MEDS: NEURONTIN 300 MG PO SCH (09:39)
[2018-10-10] MEDS: Prozac 20 MG PO SCH (09:39)
[2018-10-10] MEDS: Zestril 10 MG PO SCH ×2 (09:39→10:15)
[2018-10-10 11:00] VITALS: PULSE 88; O2SAT 95
[2018-10-10] MEDS: MORPHINE SULFATE 4 MG INJ IV PRN (12:18)
[2018-10-10 12:25] LABS: Lactic Acid 4.1 (0.4-2.0)
--- NOTE | 2018-10-10 12:42 | XRAY ---
Indication: Lower abdomen pain and bruising. Two-dimensional targeted soft tissue ultrasound of the lower abdomen wall reveals multiple subcutaneous walled off fluid collections, largest 4.7 x 2.4 x 4.5 cm. Smallest left of midline 1.0 x 0.9 x 1.0 cm. No abnormal color Doppler flow. Impression: Multiple subcutaneous walled off fluid collections. Rule out abscesses versus hematomas.
--- NOTE | 2018-10-10 13:31 | PCM.DS ---
Discharge Summary Date of Admission: 10/08/18 16:41 Admitting Physician: NOLBERTO KNUTSON MD Primary Care Provider: JUVENTINO FERNANDEZ MD Allergies Allergies Iodinated Contrast- Oral and IV Dye Allergy (Verified 10/08/18 15:33) shrimp Allergy (Verified 10/08/18 11:36) iv dye theophylline [From Theophyl] Allergy (Verified 10/08/18 11:36) Hospital Summary - Hospital Course Hospital Course: is a 43 year old female with h/o Asthma, chronic lower back pain, and PE first diagnosed in 2013. Subsequently, she had more intermittent episodes of DVT's, so has been on coumadin since then. Pt sees Dr montrell Palencia. 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 She starts to have more SOB in the past week and tenderness in her right LE, so she came to ED for evaluation. She initially went to a different ED, but came here for treatment instead. Pt develops contrast allergy after her first diagnosis of PE. She has chest tightness/ pressure, and sob along with right calf pain. She denies any recent f/c, vision changes, n/v/d, abd pain, or bleeding. She has cellulitis in her abdomen due to recent frequent SubQ Lovenox shots. V/W scan is negative for acute PE. US of the right LE shows no acute DVT but pt continues to have right calf tenderness, chest pain, and SOB. Over night, pt's respiratory status declined. Night nurses found her O2 Sat drops to high 80's despite 5L oxygen. Pt feels better after switching on BiPAP. Repeat CXR shows b/l basilar atelectasis/infiltrate. Pt has been receiving IV Zosyn since 10/09/18. Abdominal ultrasounds confirms multiple fluid collection most likely to be abscess. Zosyn has appropriate coverage despite pt's multiple antibiotic allergy. I have contacted Dr Cuellar at [facility] whom kindly accepted the pt to be transferred to his care. I have spent 1.5hr coordinating care and discharge for the pt. - Vitals & Intake/Output Vital Signs: Vital Signs Temperature 98.7 F 10/10/18 07:56 Pulse Rate 88 10/10/18 10:57 Respiratory Rate 14 10/10/18 10:57 Blood Pressure 101/55 10/10/18 07:56 O2 Sat by Pulse Oximetry 95 10/10/18 10:57 Oxygen-Last Documented O2 Percentage 50% Intake & Output: Intake & Output 10/08/18 10/09/18 10/10/18 10/11/18 11:59 11:59 11:59 11:59 Intake Total 1680 1084 Output Total 1850 1300 Balance -170 -216 Weight 87.543 kg 87.7 kg - Lab Result Diagrams: 10/10/18 04:45 10/10/18 05:41 Lab Results-Last 24 Hrs: Lab Results-Last 24 Hours 10/10/18 10/10/18 10/10/18 Range/Units 04:43 04:43 04:45 WBC 17.1 H (4.0-10.5) K/mm3 RBC 3.96 L (4.1-5.4) M/mm3 Hgb 12.2 (12.0-16.0) gm/dl Hct 38.7 (35-47) % MCV 97.7 (78-100) fl MCH 30.8 (26-32) pg MCHC 31.5 L (32-36) g/dl RDW 13.5 (11.5-14.0) % Plt Count 345 (150-450) K/mm3 MPV 10.3 H (6-9.5) fl Gran % 93.7 H (36.0-66.0) % Eos # (Auto) 0.01 (0-0.5) Absolute Lymphs (auto) 0.81 L (1.0-4.6) Absolute Monos (auto) 0.24 (0.0-1.3) Lymphocytes % 4.7 L (24.0-44.0) % Monocytes % 1.4 (0.0-12.0) % Eosinophils % 0.1 (0.00-5.0) % Basophils % 0.1 (0.0-0.4) % Absolute Granulocytes 16.01 H (1.4-6.9) Basophils # 0.01 (0-0.4) PT (9.95-12.35) SECONDS INR (0.8-3.0) Puncture Site LEFT BRACHIAL pCO2 30 L (35-45) mmHg pO2 122 H* (75-100) mmHg Base Excess -1.6 (-2.0-2.0) O2 Saturation 95.2 (94-100) g/dF ABG pH 7.46 H (7.35-7.45) ABG HCO3 21.3 L (22-28) ABG O2 Sat (Measured) 99.2 (95-100) % Lemuel Test NOT APPLICABLE A-a Gradient 154 a/A Ratio 0.44 Hemoglobin 12.6 Carboxyhemoglobin 2.7 (0.0-6.9) % THgb Methemoglobin 1.3 L (1.4-1.5) % Potassium 4.3 (3.5-5.1) Temperature 37.0 C POC O2 Flow Rate 44 % Sodium (137-145) mmol/L Chloride (98-107) mmol/L Carbon Dioxide (22-30) mmol/L Anion Gap (5-15) MEQ/L BUN (7-17) mg/dL Creatinine (0.52-1.04) mg/dL Estimated GFR ML/MIN Glucose (74-106) mg/dL Lactic Acid 3.5 H (0.4-2.0) Calcium (8.4-10.2) mg/dL 10/10/18 10/10/18 10/10/18 Range/Units 05:41 05:41 12:21 WBC (4.0-10.5) K/mm3 RBC (4.1-5.4) M/mm3 Hgb (12.0-16.0) gm/dl Hct (35-47) % MCV (78-100) fl MCH (26-32) pg MCHC (32-36) g/dl RDW (11.5-14.0) % Plt Count (150-450) K/mm3 MPV (6-9.5) fl Gran % (36.0-66.0) % Eos # (Auto) (0-0.5) Absolute Lymphs (auto) (1.0-4.6) Absolute Monos (auto) (0.0-1.3) Lymphocytes % (24.0-44.0) % Monocytes % (0.0-12.0) % Eosinophils % (0.00-5.0) % Basophils % (0.0-0.4) % Absolute Granulocytes (1.4-6.9) Basophils # (0-0.4) PT 27.8 H (9.95-12.35) SECONDS INR 2.37 D (0.8-3.0) Puncture Site pCO2 (35-45) mmHg pO2 (75-100) mmHg Base Excess (-2.0-2.0) O2 Saturation (94-100) g/dF ABG pH (7.35-7.45) ABG HCO3 (22-28) ABG O2 Sat (Measured) (95-100) % Lemuel Test A-a Gradient a/A Ratio Hemoglobin Carboxyhemoglobin (0.0-6.9) % THgb Methemoglobin (1.4-1.5) % Potassium 4.8 (3.5-5.1) Temperature C POC O2 Flow Rate % Sodium 139 (137-145) mmol/L Chloride 105 (98-107) mmol/L Carbon Dioxide 24 (22-30) mmol/L Anion Gap 15.5 H (5-15) MEQ/L BUN 24 H (7-17) mg/dL Creatinine 1.50 H (0.52-1.04) mg/dL Estimated GFR 40.3 ML/MIN Glucose 148 H (74-106) mg/dL Lactic Acid 4.1 H (0.4-2.0) Calcium 9.5 (8.4-10.2) mg/dL - Radiology Exams Ordered Rad Exams-Entire Visit: Radiology Procedures Category Date Time Status ABDOMINAL-LIMITED [US] Urgent Exams 10/10/18 12:23 Completed CHEST 2 VIEWS (PA AND LAT) Urgent Exams 10/10/18 07:53 Completed PULMONARY PERF VENTILATION [NUCMED] Routine Exams 10/09/18 08:00 Completed VENOUS UNILAT/LIMITED EXTREMIT [US] Stat Exams 10/08/18 14:25 Completed - Procedures and Test Procedures and Tests throughout Hospitalization: Therapy Orders & Screens 10/08/18 11:49 Respiratory Nebulizer STAT Comment: Diagnosis: Shortness of Breath 10/08/18 12:19 Peak Expiratory Flow Rate ONCE Comment: Reason For Exam: Diagnosis: Shortness of Breath Respiratory Therapy Assessment DAILY Comment: Diagnosis: Shortness of Breath 10/08/18 17:35 RT Screen per Nursing Assess ONCE Comment: Protocol Order Physician Instructions: Greater than 3 points order RT Admission Screen Reason For Exam: Triggered on Admission Diagnosis: Shortness of Breath Diagnosis: Shortness of Breath Pneumonia: No Home O2: Yes: 3L @ night per patient Asthma: Yes CHF: No Home CPAP/BIPAP: No Home Nebs/MDI: Yes Total Points: 14 10/08/18 19:16 Oxygen Nasal Cannula 3 lpm Comment: Diagnosis: Shortness of Breath 10/09/18 08:15 EKG ONCE Comment: chest pain Diagnosis: Shortness of Breath 10/10/18 05:50 BiPap/CPAP ROUTINE Comment: Diagnosis: Shortness of Breath Discharge Exam General Appearance: mild distress, alert, anxiety Neurologic Exam: alert, oriented x 3, 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 Skin Exam: normal color, warm, dry Eye Exam: PERRL, EOMI Ears, Nose, Throat Exam: normal ENT inspection Neck Exam: normal inspection, non-tender, supple, full range of motion Respiratory Exam: respiratory distress, diminished breath sounds, wheezing Cardiovascular Exam: tachycardia Gastrointestinal/Abdomen Exam: soft, tenderness, other (erythematous with innoculation in mid abdomen right to the umbilicus) Extremity Exam: normal inspection, normal range of motion, pelvis stable Back Exam: normal inspection, normal range of motion Final Diagnosis/Problem List - Final Discharge Diagnosis/Problem (1) Pulmonary embolism Current Visit: Yes Status: Acute Code(s): I26.99 - OTHER PULMONARY EMBOLISM WITHOUT ACUTE COR PULMONALE (2) Asthma Current Visit: Yes Status: Acute Code(s): J45.909 - UNSPECIFIED ASTHMA, UNCOMPLICATED (3) Cellulitis Current Visit: Yes Status: Acute Code(s): L03.90 - CELLULITIS, UNSPECIFIED - Discharge Disposition: Home, Self-Care Condition: Stable Prescriptions: No Action Fluoxetine HCl 20 mg [Prozac 20 MG] 20 mg PO DAILY Warfarin Sodium 4 mg PO DAILY Sucralfate 1 gm [Carafate 1 GM] 1 gm PO DAILY Hydrocodone/Acetaminophen [Hydrocodone-Acetamin 5-325 mg] 1 cap PO DAILY PRN PRN PRN Reason: Pain Gabapentin [Neurontin] 600 mg PO BID Cyclobenzaprine HCl 10 mg [Cyclobenzaprine 10 MG] 10 mg PO HS Clonazepam [Klonopin] 1 mg PO HSPRN PRN PRN Reason: Anxiety Clindamycin HCl 300 mg PO QID Albuterol Sulfate [Ventolin Hfa] 18 gm IH QIDPRN PRN PRN Reason: Shortness Of Breath clonazePAM [Klonopin] 0.5 tab PO QIDPRN PRN PRN Reason: Anxiety Lisinopril 10 mg [Zestril 10 MG] 10 mg PO DAILY Follow up with: JUVENTINO FERNANDEZ MD [Primary Care Provider] - 1 Week
[2018-10-10 13:38] VITALS: BP 106/57
== END 2018-10-10 13:00 | disposition short-term general hospital (02) ==
LOC: ED 11:26 → MED SURG 16:41 → MERGE 16:41
PROVIDERS: ADMIT Hospitalist; ATTEND Hospitalist
DX: I26.99 Other pulmonary embolism without acute cor pulmonale (principal); J45.909 Unspecified asthma, uncomplicated; L03.311 Cellulitis of abdominal wall; I10 Essential (primary) hypertension; E78.00 Pure hypercholesterolemia, unspecified; M54.5 Low back pain; Z86.711 Personal history of pulmonary embolism; Z79.01 Long term (current) use of anticoagulants; Z79.899 Other long term (current) drug therapy
CPT/HCPCS: 36000; 36415; 36600; 71046; 76705; 78582; 80048; 80053; 82375; 82550; 82803; 83605; 83880; 84484; 85025; 85379; 85610; 85730; 87040; 93005; 93041; 93268; 93971; 94002; 94150; 94640; 94762; 96372; 99285; A9540; A9567; G0378; J1650; J1885; J2060; J2270; J2543; J2930; J7609; A9270-GY

== ENCOUNTER 2024-10-18 21:35 | Emergency (ER) | payer MEDICARE ==
[2024-10-18 21:50] VITALS: RESP 18; TEMP 97.6
--- NOTE | 2024-10-18 22:08 | ERPHSYRPT ---
- History of Present Illness Time Seen by Provider: 10/18/24 21:56 Source: patient Patient Subjective Stated Complaint: "I was getting dinner made and I stepped and hyperextended my knee. I've had surgery on it and scheduled for a revision in a couple months. It's the worst pain I've ever had." Triage Nursing Assessment: Pt presents to ER complains of right knee injury that occurred this evening around 1830 while at home. Pt stepped and believed she hyperextended her knee causing her to fall to the ground. Pt has had multiple surgeries on this knee and the knee appears tender, swollen, and slightly deformed. Pt rating pain 10/10 scale. Pt has limited ROM and is unable to ambulate on right leg. Pt denies any other injuries. Pt skin is pink, warm, and dry. Respirations are easy. Pt is alert and oriented x 3. States pain is constant and crushing in nature. Denies hearing any "popping" during this injury. Physician History: Pt states about 3 hours ago at home she was getting up from a chair and hyper extended her right knee with resultant pain in her right knee and proximal right leg. Pt denies other injuries. Allergies/Adverse Reactions: cephalexin [From Keflex] Allergy (Verified 10/18/24 21:40) Hives cephelosporins chlorhexidine Allergy (Verified 10/18/24 21:40) Blisters CHG wipes ciprofloxacin [From Cipro] Allergy (Verified 10/18/24 21:40) Hives doxycycline Allergy (Verified 10/18/24 21:40) Hives erythromycin base Allergy (Verified 10/18/24 21:40) Hives Iodinated Contrast Media Allergy (Verified 10/18/24 21:40) levofloxacin Allergy (Verified 10/18/24 21:40) increase INR shrimp Allergy (Verified 10/18/24 21:40) iv dye Sulfa (Sulfonamide Antibiotics) Allergy (Verified 10/18/24 21:40) Hives theophylline [From Theophyl] Allergy (Verified 10/18/24 21:40) vitamin k Allergy (Uncoded 10/18/24 21:40) increases INR Home Medications: Albuterol Sulfate [Ventolin Hfa] 18 gm IH QIDPRN PRN 10/08/18 [History] Diazepam [Valium] 10 mg PO [id number] PRN 03/25/24 [History] Atorvastatin Calcium 80 mg PO HS 10/18/24 [History] Benralizumab [Fasenra Pen] 1 vial SQ UD 10/18/24 [History] Cholecalciferol (Vitamin D3) [Vitamin D] 1,000 unit PO WEEKLY 10/18/24 [History] Escitalopram Oxalate [Lexapro] 20 mg PO HS 10/18/24 [History] Fluticasone/Umeclidin/Vilanter [Trelegy Ellipta 200-62.5-25] 1 puff IH DAILY 10/18/24 [History] Tirzepatide [Mounjaro] 15 mg SQ WEEKLY 10/18/24 [History] Hx Tetanus, Diphtheria Vaccination/Date Given: Yes Hx Influenza Vaccination/Date Given: Yes Hx Pneumococcal Vaccination/Date Given: No Immunizations Up to Date: No Travel Risk - International Travel Have you traveled outside of the country in past 3 weeks: No - Emerging Infectious Disease Are you exhibiting symptoms associated with any current EIDs: No - Review of Systems Musculoskeletal: Joint Pain (right knee & proximal right leg pain) - Past Medical History Pertinent Past Medical History: Yes Neurological History: Migraines ENT History: No Pertinent History Cardiac History: Angina, High Cholesterol, Hypertension Respiratory History: Pulmonary Embolism, Asthma Endocrine Medical History: No Pertinent History Musculoskeletal History: No Pertinent History GI Medical History: Diverticulosis, GERD History: No Pertinent History Psycho-Social History: Depression, Anxiety Female Reproductive Disorders: No Pertinent History - Past Surgical History Past Surgical History: Yes Neuro Surgical History: No Pertinent History Cardiac: No Pertinent History Respiratory: No Pertinent History Gastrointestinal: Appendectomy, Bowel Surgery, Cholecystectomy, Other Genitourinary: No Pertinent History Musculoskeletal: Orthopedic Surgery Female Surgical History: Hysterectomy Other Surgical History: nasal surgery X 2. right ankle. lumps off bilat breast. stomach surgery X2 - oscar. port removal. right knee surgery with several revisions - Female History Hx Last Menstrual Period: n/a- hysterectomy Hx Now: No - Social History Smoking Status: Never smoker Exposure to second hand smoke: No Drug Use: none - Social Determinants of Health Will the patient participate in the screening: Yes Do you worry about a steady place to live?: No Do you have any problems with any of the following?: No known problems In the past 12 months,have you had to go without utilities?: No Transportation Issues: No Has anyone in your support network made you feel unsafe?: No Have you or anyone in your house had to go w/o enough food: No - Nursing Vital Signs Nursing Vital Signs: Initial Vital Signs Pulse Rate 85 10/18/24 21:41 Respiratory Rate 18 10/18/24 21:41 Blood Pressure 130/85 10/18/24 21:41 O2 Sat by Pulse Oximetry 97 10/18/24 21:41 Pain Scale Pain Intensity 10 - Physical Exam General Appearance: alert Legs Exam: right leg: pain (proximal right leg pain without ecchymosis or edema) Knees Exam: right knee: soft tissue tenderness (mild right patellar pain with no active flexion) Ankle Exam: right ankle: normal range of motion Foot Exam: right foot: normal range of motion Mental Status Exam: alert Skin Exam: warm, dry SpO2 Interpretation: normal SpO2: 97 O2 Delivery: Room Air - Course Nursing assessment & vital signs reviewed: Yes - CT Exams Right Lower Extremity CT Interpretation: Tele-radiologist Report (See report.) Ordered Tests: Active Orders 24 hr Category Date Time Status Hernandez Bandage Application -[facility] STAT Care 10/18/24 23:58 Active Crutches STAT Care 10/18/24 23:58 Active LOWER EXTREMITY WO CONTRAST [CT] Stat Exams 10/18/24 22:07 Completed Medication Summary Discontinued Medications Generic Name Dose Route Start Last Admin Trade Name Freq PRN Reason Stop Dose Admin Hydrocodone Bitart/Acetaminophen 2 tab 10/18/24 22:07 10/18/24 22:11 Hydrocodone/Apap 5/325 1 Tab Tablet PO 10/18/24 22:08 2 tab STAT ONE Administration Hydrocodone Bitart/Acetaminophen Confirm 10/18/24 22:09 Hydrocodone/Apap 5/325 1 Tab Tablet Administered 10/18/24 22:10 Dose 1 tab .ROUTE .STK-MED ONE Hydrocodone Bitart/Acetaminophen Confirm 10/18/24 22:10 Hydrocodone/Apap 5/325 1 Tab Tablet Administered 10/18/24 22:11 Dose 1 tab .ROUTE .STK-MED ONE - Progress Progress: unchanged Counseled pt/family regarding: diagnosis, need for follow-up, rad results Medical Desision Making - Diagnostic Testing Diagnostic test were ordered, analyzed, and reviewed by me: Yes Radiological Interpretation: Teleradiologist Report - Departure Departure Disposition: Home Clinical Impression: Right knee sprain Condition: Stable Critical Care Time: No Referrals: JUVENTINO FERNANDEZ MD [Primary Care Provider] - Follow up/PCP as directed Instructions: Knee Sprain (DC) Additional Instructions: Follow up with private doctor today.
[2024-10-18] MEDS ORDERED: NORCO 5/325 MG ONE ×2 (22:09→22:10)
[2024-10-18] MEDS: NORCO 5/325 MG PO ONE (22:11)
--- NOTE | 2024-10-18 23:52 | XRAY ---
CLINICAL HISTORY: right knee/leg pain COMPARISON: . None TECHNIQUE: Contiguous axial CT images of right lower limb were obtained without intravenous contrast. Coronal and sagittal reconstructions were likewise performed and indicated to increase the sensitivity for detecting clinically relevant pathology. CT scan was performed according to ALARA (as low as reasonable achievable). FINDINGS: Hinged right knee implant noted THere is marked sclerosis noted in the medullary cavity of the tibia surrounding the implant Marked streak artefact noted arising from the implant causing limited evaluation especially around the knee joint Mild sclerosis noted in the medullary cavity of the femur surrounding the implant No acute fracture or dislocation. No destructive osseous lesion. The visualized muscles and tendons appear grossly unremarkable. No cortical destruction to suggest osteomyelitis. No abscess formation. No significant joint effusion. There are no soft tissue masses. Normal subcutaneous adipose space. IMPRESSION: 1. Hinged right knee implant. 2. There is marked sclerosis in the medullary cavity of the tibia surrounding the implant. 3. Marked streak artefact arising from the implant causing limited evaluation especially around the knee joint. 4. Mild sclerosis in the medullary cavity of the femur surrounding the implant. Electronically Signed by: Jerry Kowalski MD. (10/18/2024 23:48:46 EDT)
[2024-10-19] MEDS ORDERED: MORPHINE SULFATE 2 MG INJ ONE (00:01)
[2024-10-19] MEDS: MORPHINE SULFATE 2 MG INJ IM ONE (00:02)
[2024-10-19 00:03] VITALS: O2SAT 97
[2024-10-19 00:04] VITALS: BP 117/75; PULSE 76
== END 2024-10-19 00:10 | disposition home or self-care (01) ==
LOC: ED 21:35
DX: S83.91XA Sprain of unspecified site of right knee, initial encounter (principal); X50.0XXA Overexertion from strenuous movement or load, initial encounter; E78.5 Hyperlipidemia, unspecified; I10 Essential (primary) hypertension; Z79.85 Long-term (current) use of injectable non-insulin antidiabetic drugs; Z79.899 Other long term (current) drug therapy
CPT/HCPCS: 73700; 96372; 99284; J2270; A9270-GY